=== PATIENT | female | born 2000 | race Caucasian/White ===

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

== ENCOUNTER → 2021-03-20 | Outpatient (CLI) | payer BC ==
[2021-03-21 09:08] LABS: HEPATITIS B SURFACE AB Reactive (.)
[2021-03-21 18:07] LABS: MUMPS ANTIBODIES, IGG <9.0 AU/mL (Immune >10.9); RUBEOLA AB IGG 20.4 AU/mL (Immune >16.4); VARICELLA-ZOSTER IGG 292 index (Immune >165)
== END | disposition home or self-care (01) ==
LOC: LAB 13:44
PROVIDERS: ATTEND Family Medicine
DX: Z11.59 Encounter for screening for other viral diseases (principal)

== ENCOUNTER → 2021-10-20 | Outpatient (CLI) | payer BC ==
[2021-10-22 04:06] LABS: HEPATITIS B SURFACE AG Negative (Negative)
[2021-10-22 14:09] LABS: MUMPS ANTIBODIES, IGG <9.0 AU/mL (Immune >10.9); RUBEOLA AB IGG 20.8 AU/mL (Immune >16.4)
== END | disposition home or self-care (01) ==
LOC: LAB 16:46
PROVIDERS: ATTEND Family Medicine
DX: Z02.0 Encounter for examination for admission to educational institution (principal)

== ENCOUNTER → 2022-12-01 | Outpatient (CLI) | payer BC ==
[2022-12-01 13:56] LABS: HEMATOCRIT 40.7 % (37.0-47.0); MEAN CORPUSCULAR HGB 29.9 pg (27.0-31.0); MEAN CORPUSCULAR HGB CONC 33.2 g/dl (33.0-37.0); MEAN PLATELET VOLUME 11.2 fl (9.6-12.3); RED BLOOD COUNT 4.52 10*6/uL (4.10-5.10); RED CELL DISTRI WIDTH 12.5 % (0-14.5); WHITE BLOOD COUNT 7.2 10*3/uL (4.8-10.8)
[2022-12-01 14:23] LABS: ALKALINE PHOSPHATASE 47 U/L (46-116); BUN 7 mg/dl (9-23); CHLORIDE 108 mmol/L (98-107); SGPT/ALT 9 U/L (10-49); TOTAL PROTEIN 7.2 gm/dL (6.0-8.0)
== END | disposition home or self-care (01) ==
LOC: LAB 13:25
PROVIDERS: ATTEND Family Medicine
DX: Z32.01 Encounter for pregnancy test, result positive (principal); K21.9 Gastro-esophageal reflux disease without esophagitis; K92.0 Hematemesis

== ENCOUNTER → 2022-12-03 | Outpatient (CLI) | payer BC | END | disposition home or self-care (01) | LOC: LAB 07:36 | PROVIDERS: ATTEND Family Medicine | DX: Z32.01 Encounter for pregnancy test, result positive (principal); K21.9 Gastro-esophageal reflux disease without esophagitis ==

== ENCOUNTER → 2022-12-05 | Outpatient (CLI) | payer BC | END | disposition home or self-care (01) | LOC: LAB 08:03 | PROVIDERS: ATTEND Family Medicine | DX: Z32.01 Encounter for pregnancy test, result positive (principal) ==

== ENCOUNTER 2022-12-20 11:14 | Emergency (ER) | payer BC ==
[~2022-12-20] VITALS: Ht 170.1 cm; Wt 72.6 kg
[2022-12-20 11:59] LABS: BILIRUBIN Negative (Negative); BLOOD Negative (Negative); CLARITY Clear (Clear); COLOR Yellow (Yellow); GLUCOSE Negative (Negative); KETONE Negative (Negative); LEUKO ESTERASE Negative (Negative); NITRITE Negative (Negative)
[2022-12-20 12:01] LABS: BASO % 0.4 % (0.0-1.0); EOS # 0.2 10*3/uL (0.0-0.4); EOS % 3.5 % (1.0-4.0); HEMATOCRIT 38.6 % (37.0-47.0); LYMPH # 1.3 10*3/uL (1.3-4.4); LYMPH % 19.1 % (27.0-41.0); MEAN CELL VOLUME 89.6 fl (81.0-99.0); MEAN CORPUSCULAR HGB 29.5 pg (27.0-31.0); MEAN CORPUSCULAR HGB CONC 32.9 g/dl (33.0-37.0); MEAN PLATELET VOLUME 10.8 fl (9.6-12.3); MONO # 0.5 10*3/uL (0.1-1.0); NEUT # 4.8 10*3/uL (2.3-7.9); NEUT % 69.7 % (47.0-73.0); PLATELET COUNT AUTOMATED 157 10*3/uL (130-400); RED BLOOD COUNT 4.31 10*6/uL (4.10-5.10); RED CELL DISTRI WIDTH 12.4 % (0-14.5); WHITE BLOOD COUNT 6.9 10*3/uL (4.8-10.8)
[2022-12-20 12:04] LABS: PH 8.5 (4.5-8.0)
[2022-12-20 12:11] LABS: BACTERIA TRACE
[2022-12-20 12:12] LABS: EPITHELIAL CELLS 21-30
[2022-12-20 12:28] LABS: ALKALINE PHOSPHATASE 43 U/L (46-116); BUN 7 mg/dl (9-23); CHLORIDE 106 mmol/L (98-107); SGPT/ALT 9 U/L (10-49)
== END 2022-12-20 13:27 | disposition home or self-care (01) ==
LOC: ED 11:14
PROVIDERS: Student in an Organized Health Care Education/Training Program
DX: O26.891 Other specified pregnancy related conditions, first trimester (principal); R10.2 Pelvic and perineal pain; Z3A.01 Less than 8 weeks gestation of pregnancy

== ENCOUNTER → 2023-03-05 | Outpatient (CLI) | payer BC ==
[2023-03-05 13:14] LABS: BASO % 0.4 % (0.0-1.0); EOS # 0.4 10*3/uL (0.0-0.4); EOS % 3.3 % (1.0-4.0); HEMATOCRIT 38.4 % (37.0-47.0); LYMPH # 1.2 10*3/uL (1.3-4.4); LYMPH % 11.1 % (27.0-41.0); MEAN CELL VOLUME 90.8 fl (81.0-99.0); MEAN CORPUSCULAR HGB 30.3 pg (27.0-31.0); MEAN CORPUSCULAR HGB CONC 33.3 g/dl (33.0-37.0); MEAN PLATELET VOLUME 10.7 fl (9.6-12.3); MONO # 0.8 10*3/uL (0.1-1.0); MONO % 7.3 % (3.0-9.0); NEUT # 8.7 10*3/uL (2.3-7.9); NEUT % 77.5 % (47.0-73.0); PLATELET COUNT AUTOMATED 165 10*3/uL (130-400); RED BLOOD COUNT 4.23 10*6/uL (4.10-5.10); RED CELL DISTRI WIDTH 13.2 % (0-14.5); WHITE BLOOD COUNT 11.2 10*3/uL (4.8-10.8)
[2023-03-06 09:07] LABS: HBSAG Negative (Negative); HEP B CORE AB, IGM Negative (Negative); HEPATITIS C ANTIBODY Non Reactive (Non Reactive)
[2023-03-10 07:06] LABS: HSV-2 DNA Negative (Negative)
[2023-03-10 15:07] LABS: INTERPRETATION No variant detected. (.)
== END | disposition home or self-care (01) ==
LOC: LAB 12:28
PROVIDERS: ATTEND Nurse Practitioner Family
DX: Z34.92 Encounter for supervision of normal pregnancy, unspecified, second trimester (principal); Z20.828 Contact with and (suspected) exposure to other viral communicable diseases; Z3A.00 Weeks of gestation of pregnancy not specified

== ENCOUNTER 2024-05-14 15:48 | Emergency (ER) | payer BC ==
[~2024-05-14] VITALS: Ht 170.1 cm; Wt 90.7 kg
== END 2024-05-14 16:50 | disposition home or self-care (01) ==
LOC: ED 15:48
DX: S92.312A Displaced fracture of first metatarsal bone, left foot, initial encounter for closed fracture (principal); F41.9 Anxiety disorder, unspecified; W10.8XXA Fall (on) (from) other stairs and steps, initial encounter; Y93.89 Activity, other specified; Y92.89 Other specified places as the place of occurrence of the external cause; Y99.8 Other external cause status

== ENCOUNTER 2024-10-06 19:40 | Emergency (ER) | payer BC ==
[~2024-10-06] VITALS: Ht 170.1 cm; Wt 104.5 kg
[2024-10-06 20:13] LABS: BILIRUBIN 1+ (Negative); BLOOD Negative (Negative); CLARITY Clear (Clear); COLOR Orange (Yellow); GLUCOSE Negative (Negative); KETONE Negative (Negative); LEUKO ESTERASE 1+ (Negative); NITRITE Positive (Negative); SPECIFIC GRAVITY 1.025 (1.001-1.030)
[2024-10-06 20:20] LABS: BACTERIA 2+
[2024-10-06] MEDS ORDERED: Ciprofloxacin Hydrochloride 500 MG TAB PO ONE (20:25)
[2024-10-06] MEDS ORDERED: CIPRO500 MG PO (20:26)
== END 2024-10-06 21:03 | disposition home or self-care (01) ==
LOC: ED 19:40
PROVIDERS: Internal Medicine
DX: N39.0 Urinary tract infection, site not specified (principal)